=== PATIENT | female | born 1990 | race American Indian/Alaskan Native ===

== ENCOUNTER 2017-08-24 12:33 | Emergency (ER) | payer SELFPAY ==
[2017-08-24 19:27] VITALS: BP 126/90
[2017-08-24] MEDS ORDERED: MOTRIN PO ONE (20:00)
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
== END 2017-08-24 20:16 | disposition home or self-care (01) ==
LOC: ED 12:33
DX: S13.4XXA Sprain of ligaments of cervical spine, initial encounter (principal); S39.012A Strain of muscle, fascia and tendon of lower back, initial encounter; V89.2XXA Person injured in unspecified motor-vehicle accident, traffic, initial encounter; Y93.89 Activity, other specified; Y99.8 Other external cause status; Y92.410 Unspecified street and highway as the place of occurrence of the external cause
CPT/HCPCS: 99282